=== PATIENT | male | born 1980 | race African-American/Black ===

== ENCOUNTER 2020-05-07 17:06 | Emergency (ER) | payer OTHER ==
[~2020-05-07] VITALS: Ht 172.7 cm; Wt 70.3 kg
[2020-05-07 17:14] VITALS: Ht 172.7 cm; Wt 70.3 kg
[2020-05-07 18:19] VITALS: BP 134/77
== END 2020-05-07 18:44 | disposition home or self-care (01) ==
LOC: ED 17:06
DX: F12.188 Cannabis abuse with other cannabis-induced disorder (principal)
CPT/HCPCS: J1630; J1885; J7030